=== PATIENT | female | born 1960 | race Caucasian/White ===

== ENCOUNTER 2018-05-04 12:45 | Emergency (ER) | payer BC ==
[2018-05-04 13:03] VITALS: BP 116/57; PULSE 75; TEMP 98.6; BMI 21.9
[2018-05-04] MEDS ORDERED: IBUPROFEN 400 MG TABLET (FP) PO ONE ×2 (14:24→14:31)
[2018-05-04] MEDS ORDERED: CYCLOBENZAPRINE HCL 10 MG TABLET (FP) PO ONE (14:24)
--- NOTE | 2018-05-04 14:30 | PDOC ---
History of Present Illness - General Chief Complaint: Back Pain Stated Complaint: LOWER BACK PAIN X 1 WEEK Time Seen by Provider: 05/04/18 12:55 History Source: Patient Exam Limitations: No Limitations - History of Present Illness Initial Comments: 05/04/18 14:24 57y F hx of fibromyalgia presents with back pain. Pt notes gradual onset of L back pain last week, will occasioally worsen but is fairly constant. pain is gradually getting worse, is nonradiating, no associated fever/chills, n/v, diarrhea, dysuria, abd pain, hematuria, numbness/tingling/weakness. no recent injuries or falls or heavy lifting. 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 she took motrin 800mg 2x over 2 days and has not helped much pt notes the pain worsened last night but is moderate currently no prior back probmes or injuries pt denies any urinary or bowel incontinence. Past History - Past Medical History Allergies/Adverse Reactions: Allergies Allergy/AdvReac Type Severity Reaction Status Date / Time tetanus toxoid, adsorbed Allergy Severe neuropathy Verified 05/04/18 12:49 Home Medications: Ambulatory Orders Acetaminophen [Pain Relief] 500 mg PO BID PRN 05/04/18 Ibuprofen [Advil -] 800 mg PO TID PRN 05/04/18 COPD: No Other medical history: FIBROMYALGIA - Immunization History Td Vaccination: Yes Immunization Up to Date: (ALLERGIC) - Suicide/Smoking/Psychosocial Hx Smoking Status: No Smoking History: Never smoked Number of Cigarettes Smoked Daily: 0 Hx Alcohol Use: Yes (OCCASIONAL) Drug/Substance Use Hx: No Substance Use Type: None Review of Systems - Review of Systems Able to Perform ROS?: Yes Comments:: 05/04/18 14:27 Constitutional - no reported Fever, Chills, HEENT: no reported vision changes, sore throat Respiratory: no reported cough, sob, hemoptysis Cardiac: no reported chest pain, palpitations, light headedness, leg swelling Abd/GI: no reported abd pain, nausea, vomiting, blood per rectum, melena, diarrhea : no reported dysuria, frequency, discharge Musculskelatal - +back pain, no reported joint swelling skin - no reported bruising, erythema, rash neurological: no reported headache, numbness, focal weakness, tingling, ataxia, hematologic: no reported easy bruising, easy bleeding *Physical Exam - Vital Signs Last Vital Signs Temp Pulse Resp BP Pulse Ox 98.6 F 75 16 116/57 96 05/04/18 12:46 05/04/18 12:46 05/04/18 12:46 05/04/18 12:46 05/04/18 12:46 - Physical Exam Comments: 05/04/18 14:27 GENERAL: The patient is awake, alert, and fully oriented, Nontoxic - in no acute distress. HEAD: Normocephalic, atraumatic. EYES: extraocular movements intact, sclera anicteric, conjunctiva clear. ENT: Normal voice, Moist mucous membranes. NECK: Normal range of motion, supple LUNGS: Breath sounds equal, clear to auscultation bilaterally. No wheezes, no rhonchi, no rales. HEART: Regular rate and rhythm, normal S1 and S2 without murmur, rub or gallop. ABDOMEN: Soft, nontender, No guarding, no rebound. No CVA tenderness EXTREMITIES: Normal range of motion, no edema. BACK: no focal midline tenderness in cervial/thoracic/lumbar spine, + reproducible tenderdness in the L superior buttock NEUROLOGICAL: No facial assymetry, Normal speech, PSYCH: Normal mood, normal affect. SKIN: Warm, Dry, normal turgor, Medical Decision Making - Medical Decision Making 05/04/18 14:30 suspect msk pain/strain consdier possible kidney stone will give motrin and flexeril will ck UA 05/04/18 17:03 pts UA noted for +[address] to r/o kidney stone - no signs of stone suspect likely [facility] will have pt care supportively at home for it, heat NSAIDS, flexeril PMD fu next week return precautions were dsiussed I discussed the physical exam findings, ancillary test results and final diagnoses with the patient. I answered all of the patient's questions. The patient was satisfied with the care received and felt comfortable with the discharge plan and treatment plan. The patient will call their primary care physician within 24 hours to arrange follow-up and will return to the Emergency Department with any new, persistent or worsening symptoms. *DC/Admit/Observation/Transfer Diagnosis at time of Disposition: Muscle spasm of back - Discharge Dispostion Disposition: HOME Condition at time of disposition: Stable Decision to Admit order: No - Referrals Referrals: Arian Morrison MD [Primary Care Provider] - - Patient Instructions Printed Discharge Instructions: DI for Back Spasm Additional Instructions: Return to the emergency department immediately with ANY new, persistent or worsening symptoms including numbness, tingling, weakness, fevers or any other concerns. Take ibuprofen (400mg)/tylenol(650mg) every 6 hours for 2 days. Take the flexeril as prescribed if you still have pain/discomfort. Caution in using flexeril as it may make you sleepy. Do not drive or put yourself in any position where you would be in danger. Apply heat to your sore muscles. You MUST call and follow up with your doctor in 3-4 days for further evaluation of your symptoms. Your emergency department visit is not complete without a followup with your doctor for reevaluation.. Results were discussed with you. Please make sure your doctor reviews the results of your emergency evaluation. Print Language: OCCITAN - Post Discharge Activity
[2018-05-04] MEDS ORDERED: CYCLOBENZAPRINE HCL 10 MG TABLET (FP) ONE (14:32)
[2018-05-04 14:43] LABS: URINE APPEARANCE Clear; URINE BILIRUBIN Negative (NEGATIVE); URINE GLUCOSE (UA) Negative (NEGATIVE); URINE KETONE Negative (NEGATIVE); URINE LEUK ESTERASE Negative (NEGATIVE); URINE NITRITE Negative (NEGATIVE); URINE PROTEIN Negative (NEGATIVE); URINE UROBILINOGEN 0.2 (0.2-1.0)
[2018-05-04 14:46] LABS: URINE COLOR AMBER
[2018-05-04 14:56] LABS: URINE RBC 0-1 /hpf (0-3)
== END 2018-05-04 17:13 | disposition home or self-care (01) ==
LOC: FER 12:45
DX: M62.830 Muscle spasm of back (principal); M79.7 Fibromyalgia
CPT/HCPCS: 74176; 81003; 81015; 99282-25

== ENCOUNTER 2019-02-06 18:38 | Emergency (ER) | payer BC ==
--- NOTE | 2019-02-06 18:51 | PDOC ---
History of Present Illness <Shahzad Hou - Last Filed: 02/06/19 18:49> - General History Source: Patient Exam Limitations: No Limitations - History of Present Illness Initial Comments: 02/06/19 19:04 The patient is a 58 year old female, with a significant PMH of fibromyalgia and migraines , who presents to the emergency department for a head injury that occurred today. The patient states she was hit by the metal part of a movie screen while at work and came into the ER for further evaluation. She currently reports pain to the left side of her head and states it feels burning in nature. The patient denies LOC, numbness and tingling . Denies any change with vision or headaches. Denies any other neurological deficit. Allergies: tetanus toxoid, absorbed ibuprofen Past surgical history: None reported Social history: None reported PCP: None reported <Hans Cyr - Last Filed: 02/06/19 19:25> - General Chief Complaint: Injury Stated Complaint: injury to head at work Time Seen by Provider: 02/06/19 18:42 Past History - Past Medical History COPD: No Other medical history: migraines - Immunization History Td Vaccination: Yes Immunization Up to Date: (ALLERGIC) - Suicide/Smoking/Psychosocial Hx Smoking Status: No Smoking History: Never smoked Number of Cigarettes Smoked Daily: 0 Hx Alcohol Use: Yes (OCCASIONAL) Drug/Substance Use Hx: No Substance Use Type: None <AmeyaShahzad - Last Filed: 02/06/19 18:49> <Hans Cyr - Last Filed: 02/06/19 19:25> - Past Medical History Allergies/Adverse Reactions: Allergies Allergy/AdvReac Type Severity Reaction Status Date / Time tetanus toxoid, adsorbed Allergy Severe neuropathy Verified 02/06/19 18:40 ibuprofen [From Advil] Allergy Intermediate Swelling Verified 02/06/19 18:47 Home Medications: Ambulatory Orders NK [No Known Home Medication] 02/06/19 Review of Systems - Review of Systems Able to Perform ROS?: Yes Comments:: 02/06/19 19:04 ROS: A complete review of 10 out of 10 review of systems is taken and is negative apart from what is previously mentioned below and in the HPI. <Hans Cyr - Last Filed: 02/06/19 19:25> *Physical Exam - Vital Signs Last Vital Signs Temp Pulse Resp BP Pulse Ox 98.5 F 75 18 124/50 L 100 02/06/19 18:40 03 18:40 02/06/19 18:40 02/06/19 18:40 02/06/19 18:40 - Physical Exam Comments: 02/06/19 19:04 Vitals: Triage vital signs reviewed General Appearance: No acute distress, well nourished, well developed Head: Atraumatic Eyes: Pupils equal reactive round, extraocular movement intact Ears: TM's normal bilaterally Nose: Nares patent bilaterally; no nasal congestion Neck: Supple; No nuchal rigidity Chest Wall: Nontender Cardiac: Regular rate and rhythm, no murmurs, no rubs, no gallops Lungs: Clear to auscultation bilateral, good air movement bilaterally Skin: +0.1 cm abrasion on the top of the head. Neuro: AOX3; Cranial Nerves 2-12 grossly intact, Strength intact to all extremities, Sensation intact to all extremities, gait normal Psych: Normal mood, normal affect <Hans Cyr - Last Filed: 02/06/19 19:25> Moderate Sedation - Procedure Monitoring Vital Signs: Procedure Monitoring Vital Signs Temperature 98.5 F 02/06/19 18:40 Pulse Rate 75 02/06/19 18:40 Respiratory Rate 18 02/06/19 18:40 Blood Pressure 124/50 L 02/06/19 18:40 O2 Sat by Pulse Oximetry (%) 100 02/06/19 18:40 <Hans Cyr - Last Filed: 02/06/19 19:25> Medical Decision Making - Medical Decision Making 02/06/19 18:50 58 years old no significant past medical history not on any blood thinners presents to the ED with minor head injury hit in the head with a screen while at work. Patient did not blackout pass out there was no loss of consciousness. Patient has a normal neurologic examination here in the emergency department they're is no indication for imaging based on [place] head CT criteria Risks and benefits of imaging discussed at length with patient. Using shared decision-making decision made not to image patient at this time Findings, the need for follow-up and strict return instructions discussed patient. <Shahzad Hou - Last Filed: 02/06/19 18:49> *DC/Admit/Observation/Transfer - Discharge Dispostion Decision to Admit order: No <Shahzad Hou - Last Filed: 02/06/19 18:49> - Attestations Scribe Attestion: 02/06/19 19:06 Documentation prepared by Hans Cyr, acting as medical record consultant for Shahzad Hou MD. <Hans Cyr - Last Filed: 02/06/19 19:25> Diagnosis at time of Disposition: Minor head injury Qualifiers: Encounter type: initial encounter Qualified Code(s): S09.90XA - Unspecified injury of head, initial encounter - Discharge Dispostion Disposition: HOME Condition at time of disposition: Stable - Referrals Referrals: Ever Cha MD [Staff Physician] - - Patient Instructions Printed Discharge Instructions: DI for Closed Head Injury Additional Instructions: Return to the emergency department immediately for any severe headache persistent vomiting weakness numbness or for any concerns. Okay to take over-the -counter Tylenol as directed on package as needed for pain. If having any headache dizziness or signs and symptoms of concussion that last longer than 5 days please follow up with the referred neurologist. Tonight have someone check on you 2-3 times via phone call to make sure your arousable.
[2019-02-06 18:55] VITALS: BP 124/50; PULSE 75; TEMP 98.5; BMI 21.0
== END 2019-02-06 19:03 | disposition home or self-care (01) ==
LOC: FER 18:38
DX: S09.90XA Unspecified injury of head, initial encounter (principal); W20.8XXA Other cause of strike by thrown, projected or falling object, initial encounter; Y93.89 Activity, other specified; Y92.89 Other specified places as the place of occurrence of the external cause; Y99.0 Civilian activity done for income or pay
CPT/HCPCS: 99282-25